=== PATIENT | male | born 1965 | race Caucasian/White ===

== ENCOUNTER 2020-04-02 21:40 | Inpatient (IN) | payer BC ==
[~2020-04-02] VITALS: Ht 167.6 cm; Wt 86.2 kg
[2020-04-02 21:53] VITALS: Ht 167.6 cm; Wt 86.2 kg
[2020-04-02 23:24] LABS: BASOPHIL % 0.1 % (0-2); PLATELET COUNT 238 x10^3mcL (130-400); RED CELL DISTRIBUTION WIDTH 12.9 % (11.5-14.5)
[2020-04-02 23:41] LABS: CALCIUM 7.9 mg/dL (8.5-10.1); CARBON DIOXIDE 27.9 mmol/L (21-32); CHLORIDE SERUM 99 mmol/L (98-107); GFR1 > 60 mL/min; GLUCOSE SERUM 145 mg/dL (74-106); POTASSIUM SERUM 3.5 mmol/L (3.5-5.1); SODIUM SERUM 134 mmol/L (136-145)
[2020-04-02 23:46] LABS: ALKALINE PHOSPHATASE 74 U/L (46-116); ALT/SGPT 57 U/L (16-63); AST/SGOT 32 U/L (15-37); BILIRUBIN TOTAL 0.8 mg/dL (0.20-1.00); LACTIC DEHYDROGENASE (LDH) 357 U/L (100-190); TOTAL PROTEIN, SERUM 7.1 g/dL (6.4-8.2)
[2020-04-02 23:47] LABS: ALBUMIN 2.7 g/dL (3.4-5.0)
[2020-04-03 00:34] VITALS: BP 137/73
[2020-04-03 01:36] LABS: C REACTIVE PROTEIN 24.8 mg/dL (<=0.9)
[2020-04-03 02:04] LABS: CHOLESTEROL/HDL RATIO 4.4
[2020-04-03 05:06] LABS: PLATELET COUNT 236 x10^3mcL (130-400)
[2020-04-03 05:15] LABS: BASOPHIL % 0 % (0-2)
[2020-04-03 05:42] LABS: CALCIUM 8.2 mg/dL (8.5-10.1); CARBON DIOXIDE 25.9 mmol/L (21-32); CHLORIDE SERUM 98 mmol/L (98-107); CREATININE SERUM 0.9 mg/dL (0.7-1.3); GFR1 > 60 mL/min; GLUCOSE SERUM 150 mg/dL (74-106); MAGNESIUM 2.4 mg/dL (1.8-2.4); PHOSPHOROUS 2.4 mg/dL (2.5-4.9); POTASSIUM SERUM 3.7 mmol/L (3.5-5.1); SODIUM SERUM 133 mmol/L (136-145)
[2020-04-03 05:52] LABS: C REACTIVE PROTEIN 33.8 mg/dL (<=0.9)
[2020-04-03 13:06] VITALS: BP 140/74
[2020-04-03 14:11] VITALS: BP 156/95
[2020-04-03 17:05] VITALS: BP 155/79
[2020-04-03 21:10] VITALS: BP 133/85
[2020-04-04 06:25] VITALS: BP 132/81
[2020-04-04 07:52] LABS: ALBUMIN 2.3 g/dL (3.4-5.0); ALKALINE PHOSPHATASE 88 U/L (46-116); ALT/SGPT 129 U/L (16-63); AST/SGOT 99 U/L (15-37); BILIRUBIN TOTAL 0.6 mg/dL (0.20-1.00); CARBON DIOXIDE 30.1 mmol/L (21-32); CHLORIDE SERUM 99 mmol/L (98-107); CREATININE SERUM 0.9 mg/dL (0.7-1.3); GFR1 > 60 mL/min; GLUCOSE SERUM 115 mg/dL (74-106); MAGNESIUM 2.8 mg/dL (1.8-2.4); PHOSPHOROUS 2.7 mg/dL (2.5-4.9); POTASSIUM SERUM 3.9 mmol/L (3.5-5.1); SODIUM SERUM 135 mmol/L (136-145); TOTAL PROTEIN, SERUM 6.9 g/dL (6.4-8.2)
[2020-04-04 08:37] VITALS: BP 147/88
[2020-04-04 09:42] LABS: BASOPHIL % 0.1 % (0-2); PLATELET COUNT 252 x10^3mcL (130-400); RED CELL DISTRIBUTION WIDTH 13.5 % (11.5-14.5)
[2020-04-04 13:15] VITALS: BP 135/86
[2020-04-04 14:44] LABS: UA SPECIFIC GRAVITY 1.015 (1.005-1.035); microscopic required? YES; urine erythrocyte TRACE (NEGATIVE)
[2020-04-04 17:24] VITALS: BP 128/89
[2020-04-04 21:39] VITALS: BP 127/70
[2020-04-05 05:55] VITALS: BP 119/75
[2020-04-05 07:18] LABS: ALKALINE PHOSPHATASE 88 U/L (46-116); ALT/SGPT 201 U/L (16-63); AST/SGOT 102 U/L (15-37); BILIRUBIN DIRECT 0.23 mg/dL (0.0-0.2); BILIRUBIN TOTAL 0.5 mg/dL (0.20-1.00); CARBON DIOXIDE 31.6 mmol/L (21-32); CHLORIDE SERUM 99 mmol/L (98-107); GFR1 > 60 mL/min; GLUCOSE SERUM 101 mg/dL (74-106); MAGNESIUM 2.7 mg/dL (1.8-2.4); PHOSPHOROUS 3.1 mg/dL (2.5-4.9); POTASSIUM SERUM 3.6 mmol/L (3.5-5.1); SODIUM SERUM 136 mmol/L (136-145); TOTAL PROTEIN, SERUM 6.7 g/dL (6.4-8.2)
[2020-04-05 07:19] LABS: ALBUMIN 2.4 g/dL (3.4-5.0)
[2020-04-05 07:23] LABS: BASOPHIL % 0.1 % (0-2); PLATELET COUNT 258 x10^3mcL (130-400); RED CELL DISTRIBUTION WIDTH 12.8 % (11.5-14.5)
[2020-04-05 08:07] VITALS: BP 108/62
[2020-04-05 11:56] VITALS: BP 101/68
[2020-04-05 15:53] VITALS: BP 132/77
[2020-04-05 20:22] VITALS: BP 136/84
[2020-04-06 05:45] VITALS: BP 116/76
[2020-04-06 06:55] LABS: BASOPHIL % 0.2 % (0-2); PLATELET COUNT 298 x10^3mcL (130-400)
[2020-04-06 07:28] LABS: ALKALINE PHOSPHATASE 83 U/L (46-116); ALT/SGPT 146 U/L (16-63); AST/SGOT 49 U/L (15-37); BILIRUBIN DIRECT 0.25 mg/dL (0.0-0.2); BILIRUBIN TOTAL 0.6 mg/dL (0.20-1.00); CALCIUM 8.1 mg/dL (8.5-10.1); CARBON DIOXIDE 29.3 mmol/L (21-32); CHLORIDE SERUM 100 mmol/L (98-107); GFR1 > 60 mL/min; GLUCOSE SERUM 110 mg/dL (74-106); MAGNESIUM 2.2 mg/dL (1.8-2.4); POTASSIUM SERUM 3.7 mmol/L (3.5-5.1); SODIUM SERUM 135 mmol/L (136-145); TOTAL PROTEIN, SERUM 6.6 g/dL (6.4-8.2)
[2020-04-06 07:38] LABS: ALBUMIN 2.4 g/dL (3.4-5.0)
[2020-04-06 07:55] VITALS: BP 109/72
[2020-04-06 11:35] VITALS: BP 107/62
[2020-04-06 16:24] VITALS: BP 119/60
[2020-04-06 19:57] VITALS: BP 125/73
[2020-04-07 05:07] VITALS: BP 124/71
[2020-04-07 07:25] LABS: BASOPHIL % 0.2 % (0-2); PLATELET COUNT 305 x10^3mcL (130-400); RED CELL DISTRIBUTION WIDTH 12.9 % (11.5-14.5)
[2020-04-07 08:06] LABS: CALCIUM 8.1 mg/dL (8.5-10.1); CARBON DIOXIDE 28.6 mmol/L (21-32); CHLORIDE SERUM 99 mmol/L (98-107); GFR1 > 60 mL/min; GLUCOSE SERUM 102 mg/dL (74-106); MAGNESIUM 2.2 mg/dL (1.8-2.4); PHOSPHOROUS 2.6 mg/dL (2.5-4.9); POTASSIUM SERUM 4.1 mmol/L (3.5-5.1); SODIUM SERUM 135 mmol/L (136-145)
[2020-04-07 08:18] LABS: BILIRUBIN DIRECT 0.27 mg/dL (0.0-0.2); BILIRUBIN TOTAL 0.7 mg/dL (0.20-1.00)
[2020-04-07 08:21] LABS: ALBUMIN 2.4 g/dL (3.4-5.0)
[2020-04-07 09:19] VITALS: BP 129/75
[2020-04-07 13:38] VITALS: BP 112/70
[2020-04-07 17:03] VITALS: BP 137/75
[2020-04-07 20:20] VITALS: BP 121/73
[2020-04-08 04:32] VITALS: BP 107/71
[2020-04-08 06:46] LABS: PLATELET COUNT 351 x10^3mcL (130-400); RED CELL DISTRIBUTION WIDTH 12.8 % (11.5-14.5)
[2020-04-08 07:11] LABS: BASOPHIL % 0 % (0-2)
[2020-04-08 07:24] LABS: CALCIUM 8.1 mg/dL (8.5-10.1); CARBON DIOXIDE 25.7 mmol/L (21-32); CHLORIDE SERUM 101 mmol/L (98-107); CREATININE SERUM 0.8 mg/dL (0.7-1.3); GFR1 > 60 mL/min; GLUCOSE SERUM 141 mg/dL (74-106); MAGNESIUM 2.5 mg/dL (1.8-2.4); PHOSPHOROUS 3.9 mg/dL (2.5-4.9); POTASSIUM SERUM 4.8 mmol/L (3.5-5.1); SODIUM SERUM 135 mmol/L (136-145)
[2020-04-08 08:33] VITALS: BP 123/79
[2020-04-08 09:05] LABS: BILIRUBIN DIRECT 0.21 mg/dL (0.0-0.2); BILIRUBIN TOTAL 0.5 mg/dL (0.20-1.00)
[2020-04-08 09:06] LABS: ALBUMIN 2.3 g/dL (3.4-5.0); TOTAL PROTEIN, SERUM 6.1 g/dL (6.4-8.2)
[2020-04-08 13:00] VITALS: BP 125/82
[2020-04-08 17:04] VITALS: BP 136/81
[2020-04-08 21:05] VITALS: BP 123/75
[2020-04-09 05:54] VITALS: BP 109/58
[2020-04-09 07:40] LABS: RED CELL DISTRIBUTION WIDTH 12.8 % (11.5-14.5)
[2020-04-09 07:42] LABS: CALCIUM 7.9 mg/dL (8.5-10.1); CHLORIDE SERUM 99 mmol/L (98-107); CREATININE SERUM 0.9 mg/dL (0.7-1.3); GFR1 > 60 mL/min; GLUCOSE SERUM 140 mg/dL (74-106); MAGNESIUM 2.5 mg/dL (1.8-2.4); PHOSPHOROUS 3.4 mg/dL (2.5-4.9); POTASSIUM SERUM 4.1 mmol/L (3.5-5.1); SODIUM SERUM 134 mmol/L (136-145)
[2020-04-09 08:40] LABS: BASOPHIL % 0 % (0-2); PLATELET COUNT 420 x10^3mcL (130-400)
[2020-04-09 08:45] VITALS: BP 119/79
[2020-04-09 12:28] VITALS: BP 111/61
[2020-04-09 16:45] VITALS: BP 155/78
[2020-04-09 20:50] VITALS: BP 121/66
[2020-04-10 05:15] VITALS: BP 120/68
[2020-04-10 07:46] LABS: CALCIUM 8.5 mg/dL (8.5-10.1); CHLORIDE SERUM 99 mmol/L (98-107); GFR1 > 60 mL/min; GLUCOSE SERUM 134 mg/dL (74-106); MAGNESIUM 2.9 mg/dL (1.8-2.4); PHOSPHOROUS 3.9 mg/dL (2.5-4.9); POTASSIUM SERUM 4.2 mmol/L (3.5-5.1); SODIUM SERUM 136 mmol/L (136-145)
[2020-04-10 08:16] VITALS: BP 117/75
[2020-04-10 08:19] LABS: BASOPHIL % 0.2 % (0-2); RED CELL DISTRIBUTION WIDTH 13.1 % (11.5-14.5)
[2020-04-10 08:49] LABS: PLATELET COUNT 525 x10^3mcL (130-400)
[2020-04-10 08:58] LABS: BILIRUBIN DIRECT 0.2 mg/dL (0.0-0.2); BILIRUBIN TOTAL 0.58 mg/dL (0.20-1.00); TOTAL PROTEIN, SERUM 7.5 g/dL (6.4-8.2)
[2020-04-10 08:59] LABS: ALBUMIN 2.6 g/dL (3.4-5.0)
[2020-04-10 12:18] VITALS: BP 123/81
[2020-04-10 16:39] VITALS: BP 124/74
[2020-04-10 22:07] VITALS: BP 119/73
[2020-04-11 06:42] VITALS: BP 120/76
[2020-04-11 07:02] LABS: RED CELL DISTRIBUTION WIDTH 12.9 % (11.5-14.5)
[2020-04-11 07:12] LABS: BASOPHIL % 0 % (0-2); PLATELET COUNT 454 x10^3mcL (130-400)
[2020-04-11 07:23] LABS: CALCIUM 7.8 mg/dL (8.5-10.1); CARBON DIOXIDE 29.2 mmol/L (21-32); CHLORIDE SERUM 99 mmol/L (98-107); CREATININE SERUM 0.8 mg/dL (0.7-1.3); GFR1 > 60 mL/min; GLUCOSE SERUM 127 mg/dL (74-106); MAGNESIUM 2.6 mg/dL (1.8-2.4); PHOSPHOROUS 3.6 mg/dL (2.5-4.9); POTASSIUM SERUM 4.7 mmol/L (3.5-5.1); SODIUM SERUM 133 mmol/L (136-145)
[2020-04-11 08:02] VITALS: BP 117/73
[2020-04-11 12:00] VITALS: BP 140/81
[2020-04-11 16:13] VITALS: BP 128/84
[2020-04-11 21:19] VITALS: BP 123/79
[2020-04-12 06:05] VITALS: BP 116/82
[2020-04-12 07:15] LABS: BASOPHIL % 0.1 % (0-2); RED CELL DISTRIBUTION WIDTH 12.8 % (11.5-14.5)
[2020-04-12 07:27] LABS: CALCIUM 8.1 mg/dL (8.5-10.1); CARBON DIOXIDE 31.4 mmol/L (21-32); CHLORIDE SERUM 98 mmol/L (98-107); CREATININE SERUM 0.9 mg/dL (0.7-1.3); GFR1 > 60 mL/min; GLUCOSE SERUM 89 mg/dL (74-106); MAGNESIUM 2.5 mg/dL (1.8-2.4); PHOSPHOROUS 3.4 mg/dL (2.5-4.9); POTASSIUM SERUM 4.6 mmol/L (3.5-5.1); SODIUM SERUM 133 mmol/L (136-145)
[2020-04-12 08:27] LABS: PLATELET COUNT 493 x10^3mcL (130-400)
[2020-04-12 08:48] VITALS: BP 101/69
[2020-04-12 12:08] VITALS: BP 116/68
[2020-04-12] MEDS ORDERED: VENTOLIN H0.09 MG/A1 INH (13:25)
[2020-04-12] MEDS ORDERED: XARELTO10 M1 PO (13:28)
[2020-04-12] MEDS ORDERED: DELTASONE20 MG PO (13:58)
[2020-04-12 14:06] VITALS: BP 116/68
[2020-04-12 16:31] VITALS: BP 120/83
== END 2020-04-12 18:17 | disposition home or self-care (01) | DRG 871 ==
LOC: ED 21:40 → DU 23:05
PROVIDERS: Family Medicine; Internal Medicine Infectious Disease; Student in an Organized Health Care Education/Training Program; ADMIT Internal Medicine; ATTEND Internal Medicine
PROC: 5A09357 Assistance with Respiratory Ventilation, Less than 24 Consecutive Hours, Continuous Positive Airway Pressure (ICD-10-PCS; principal; 2020-04-03)
PROC: XW13325 Transfusion of Convalescent Plasma (Nonautologous) into Peripheral Vein, Percutaneous Approach, New Technology Group 5 (ICD-10-PCS; 2020-04-04)
PROC: XW033E5 Introduction of Remdesivir Anti-infective into Peripheral Vein, Percutaneous Approach, New Technology Group 5 (ICD-10-PCS; 2020-04-04)
DX: A41.89 Other specified sepsis (principal); U07.1 COVID-19; J12.89 Other viral pneumonia; N17.0 Acute kidney failure with tubular necrosis; J96.01 Acute respiratory failure with hypoxia; E87.1 Hypo-osmolality and hyponatremia; R73.9 Hyperglycemia, unspecified; Z79.899 Other long term (current) drug therapy
CPT/HCPCS: 36600; 82962; 83880; 85378; 87804; G0378; J0456; J0696; J1100; J1200; J1650; J1940; J1956; J2920; J3535; J7040; J7050; U0003